=== PATIENT | female | born 1985 | race Caucasian/White ===

== ENCOUNTER 2018-07-23 05:36 | Day surgery (SDC) | payer MEDICAID ==
[2018-07-23] MEDS ORDERED: LIDOCAINE 2% MDV (20MG/ML) 20ML VIAL IV ONE (05:37)
[2018-07-23] MEDS ORDERED: KETAMINE HCL 100MG/1ML VIAL INJ ONE (05:37)
[2018-07-23] MEDS ORDERED: PROPOFOL 10 MG/ML VIAL IV ONE (05:37)
[2018-07-23] MEDS ORDERED: RINGERS SOLUTION,LACTATED 1,000 ML IV ONE (06:15)
--- NOTE | 2018-07-29 10:21 | Operative Note ---
DATE: 07/23/18. PROCEDURE: Hysteroscopic removal of intrauterine device. PREOPERATIVE DIAGNOSIS: Intrauterine device string blocked. PREOPERATIVE DIAGNOSIS: Intrauterine device string blocked. SURGEON: Diana Huynh D.O. ANESTHESIA: Intravenous sedation. SPECIMEN: None. ESTIMATED BLOOD LOSS: Minimal. FLUIDS: Per anesthesia. DRAINS: A total of 200 mL of clear urine drained prior to procedure. FINDINGS: Upon entering the endometrium with the hysteroscope, the intrauterine device was visualized within the endometrium. The hysteroscopic graspers were used to grasp the intrauterine device, and the scope and intrauterine device were removed. The intrauterine device was inspected and was completely intact. INDICATIONS: Intrauterine device string blocked. DESCRIPTION OF PROCEDURE: Consent was obtained. The patient was taken to the operating room where general anesthesia was obtained without difficulty. She was prepped and draped in the normal sterile fashion in the dorsal lithotomy position. A red rubber catheter was placed and drained approximately 200 mL of clear yellow urine. A weighted speculum was placed in the patient's vagina. The anterior lip of the cervix was grasped with a single-tooth tenaculum. The cervix was gently dilated with Hanks dilators to #20 [place]. The hysteroscope was primed according to protocol and inserted into the uterus. The intrauterine device was visualized. The hysteroscopic graspers were placed through the hysteroscope, grasping the intrauterine device string and removing the scope and intrauterine device at the same time. There was no bleeding noted from the cervical os. The tenaculum was removed from the anterior lip of the cervix with small bleeders noted. Silver nitrate was used, and then excellent hemostasis was noted. All instruments were removed from the vagina. Sponge and instrument counts were correct. The patient was awakened and taken to the recovery room in stable condition. KIARA
== END 2018-07-23 08:32 | disposition home or self-care (01) ==
LOC: SUR 05:36
PROVIDERS: ATTEND Student in an Organized Health Care Education/Training Program
DX: Z30.432 Encounter for removal of intrauterine contraceptive device (principal); K21.9 Gastro-esophageal reflux disease without esophagitis
CPT/HCPCS: 58579; 00952; 81025; J3490; J7120